=== PATIENT | female | born 1970 | race Two or more races ===

== ENCOUNTER 2019-11-07 21:50 | Emergency (ER) | payer MEDICAID ==
[~2019-11-07] VITALS: Ht 162.6 cm; Wt 63.5 kg
[2019-11-07 23:20] LABS: Urine Bacteria NONE SEEN /hpf (None Seen); Urine Blood Negative /uL (Negative); Urine Mucus FEW (None Seen); Urine Specific Gravity 1.016 (1.001-1.035); Urine WBC 5 /hpf (0 - 5)
[2019-11-07 23:43] LABS: Mean Corpuscular Volume 67.9 fL (80.0-100.0); Monocytes # (auto) 0.4 10 ^3/uL (0-1.3); Nucleated Red Blood Cells % 0.1 %
[2019-11-07 23:48] LABS: Hemoglobin 11.7 g/dL (12.2-16.2); Lymphocytes # (auto) 1.4 10 ^3/uL (0.4-5.4); Mean Corpuscular Hemoglobin 20.9 pg (28.0-32.0); Mean Corpuscular Hgb Conc. 30.8 g/dL (32.0-36.0)
[2019-11-07 23:51] LABS: Basophils # (auto) 0 10 ^3/uL (0-0.2); Basophils % (auto) 0.6 % (0.0-2.0); Eosinophils # (auto) 0 10 ^3/uL (0-0.8); Eosinophils % (auto) 0.7 % (0.0-7.0); Lymphocytes % (auto) 21.2 % (10.0-50.0); Monocytes % (auto) 6.5 % (0.0-12.0); Neutrophils # (auto) 4.7 10 ^3/uL (1.6-8.6); Platelet Count (auto) 367 10^3/uL (140-450); Red Blood Cells 5.59 10^6/uL (4.0-5.20); White Blood Cell 6.6 10^3/uL (4.4-10.8)
[2019-11-08 00:02] LABS: Albumin 3.5 g/dL (3.4-5.0); Anion Gap 6 (5-15); Calcium 8.7 mg/dL (8.5-10.1); Carbon Dioxide 28 mmol/L (21-32); Chloride 102 mmol/L (98-107); Glucose 103 mg/dL (74-106); Magnesium 2.3 mg/dL (1.6-2.6); Potassium 4.1 mmol/L (3.5-5.1); Sodium 136 mmol/L (136-145)
[2019-11-08 00:06] LABS: Red Cell Distribution Width 20.6 % (11.8-14.3)
[2019-11-08 00:10] LABS: Alanine Aminotransferase 22 U/L (13-56); Alkaline Phosphatase 64 U/L (45-117); Aspartate Aminotransferase 20 U/L (15-37); BUN/Creatinine Ratio 23.8; Bilirubin, Total 0.7 mg/dL (0.2-1.0); Blood Urea Nitrogen 15 mg/dL (7-18); GFR African American 129 mL/min; GFR Non-African American 107 mL/min; Total Protein 8.2 g/dL (6.4-8.2)
[2019-11-08 03:32] LABS: INR 0.93 (0.9-1.15); Partial Thromboplastin Time 26.7 sec (23.64-32.05)
[2019-11-08 03:43] VITALS: BP 124/77
== END 2019-11-08 04:19 | disposition home or self-care (01) ==
LOC: ER 21:50
DX: K21.9 Gastro-esophageal reflux disease without esophagitis (principal); N39.0 Urinary tract infection, site not specified; R07.89 Other chest pain
CPT/HCPCS: 36415; 71046; 80053; 81001; 81025; 83735; 83880; 84443; 84484; 85025; 85379; 85610; 85730; 93005

== ENCOUNTER 2020-03-23 01:10 | Inpatient (IN) | payer MEDICAID ==
[~2020-03-23] VITALS: Ht 162.6 cm; Wt 73.5 kg
[2020-03-23] MEDS ORDERED: ALBUTEROL SULF 2.5 MG/0.5ML(0.5%) NEB SOLN NEB ONE (04:15)
[2020-03-23] MEDS ORDERED: IPRATROPIUM BROM 0.5 MG/2.5ML INH SOL NEB ONE (04:15)
[2020-03-23 04:32] LABS: Neutrophils # (auto) 4.6 10 ^3/uL (1.6-8.6)
[2020-03-23 04:33] LABS: Basophils # (auto) 0 10 ^3/uL (0-0.2); Basophils % (auto) 0.6 % (0.0-2.0); Eosinophils # (auto) 0.2 10 ^3/uL (0-0.8); Eosinophils % (auto) 2.1 % (0.0-7.0); Hematocrit 34.5 % (36.0-46.0); Hemoglobin 10.7 g/dL (12.2-16.2); Lymphocytes # (auto) 1.9 10 ^3/uL (0.4-5.4); Lymphocytes % (auto) 25.2 % (10.0-50.0); Mean Corpuscular Hemoglobin 21.6 pg (28.0-32.0); Mean Corpuscular Hgb Conc. 31.1 g/dL (32.0-36.0); Mean Corpuscular Volume 69.5 fL (80.0-100.0); Monocytes # (auto) 0.7 10 ^3/uL (0-1.3); Monocytes % (auto) 9.4 % (0.0-12.0); Neutrophils % (auto) 62.7 % (37.0-80.0); Platelet Count (auto) 414 10^3/uL (140-450); Red Blood Cells 4.96 10^6/uL (4.0-5.20); White Blood Cell 7.4 10^3/uL (4.4-10.8)
[2020-03-23 04:34] LABS: Red Cell Distribution Width 21.3 % (11.8-14.3)
[2020-03-23 04:49] LABS: INR 0.92 (0.9-1.15); Partial Thromboplastin Time 25.4 sec (23.0-31.2)
[2020-03-23 04:53] LABS: Albumin 3.3 g/dL (3.4-5.0); Anion Gap 5 (5-15); Blood Urea Nitrogen 18 mg/dL (7-18); Calcium 8.6 mg/dL (8.5-10.1); Carbon Dioxide 28 mmol/L (21-32); Chloride 106 mmol/L (98-107); Glucose 100 mg/dL (74-106); Magnesium 2.3 mg/dL (1.6-2.6); Potassium 3.9 mmol/L (3.5-5.1); Sodium 139 mmol/L (136-145)
[2020-03-23 04:58] LABS: Alanine Aminotransferase 22 U/L (13-56); Alkaline Phosphatase 75 U/L (45-117); Aspartate Aminotransferase 21 U/L (15-37); Bilirubin, Total 0.7 mg/dL (0.2-1.0); GFR African American 142 mL/min; GFR Non-African American 117 mL/min; Total Protein 7.4 g/dL (6.4-8.2)
[2020-03-23] MEDS ORDERED: NITROGLYCERIN 0.4 MG SL TAB SL PRN (06:15)
[2020-03-23] MEDS ORDERED: ONDANSETRON HCL 4 MG/2 ML VIAL IV PRN (06:15)
[2020-03-23] MEDS ORDERED: MORPHINE SULF INJ 2 MG/ML SYRINGE 1ML IV PRN ×2 (06:15)
--- NOTE | 2020-03-23 09:04 | NUR ---
Telemetry admit from ER [facility] admitted to Telemetry unit after SBAR received. Patient oriented to Dinora Dumont, primary RN, unit, room, bed, and unit policies regarding patient care and visiting hours. Patient now on continuous telemetry monitoring, tele box # [id number] and telemetry reading on arrival to unit is sr HR 60's. Patient denies need for bedside oxygen, VSS. Pt weighed by bedscale and encouraged to call if they need something. All questions and concerns addressed, patient verbalized understanding. Patient denies cp at this time. No acute distress or sob noted. Cont care
[2020-03-23] MEDS ORDERED: ASPI-543 PO ×2 (09:18→11:21)
[2020-03-23] MEDS ORDERED: METOPROLOL TARTRATE 25 MG TAB PO SCH (10:00)
[2020-03-23] MEDS ORDERED: ASPirin-EC 81 mg tab PO SCH (10:00)
[2020-03-23] MEDS ORDERED: ENOXAPARIN SOD 40 MG/0.4 ML SYRINGE SC SCH (10:00)
[2020-03-23 13:00] VITALS: BP 86/64
--- NOTE | 2020-03-23 13:07 | NUR ---
MD at bedside Aware of patient's status, new orders received for UA and urine bacterial. Awaiting sample from patient at this time. Cont care
--- NOTE | 2020-03-23 14:20 | NUR ---
Spoke to Dr Lobato, he states patient is cleared for dc from cardio stand point. states pt does not require further cardio work up and to f/u in 1 week. Pt received his card to call and make own appointment. Patient verbalized understanding. Awaiting urine sample at this time. Patient denies any cp, no sob or distress noted.
[2020-03-23 14:27] VITALS: BP 104/68
--- NOTE | 2020-03-23 16:16 | NUR ---
Patient provided new urine cup for urine sample as, per patient, the other one got "dumped". Awaiting sample at this time.
[2020-03-23 16:58] VITALS: BP 96/59
--- NOTE | 2020-03-23 17:30 | NUR ---
Patient c/o headache and requesting meds, MD Silveira paged to obtain orders and notify of decreased BP. Voicemail left in answering machine awaiting call back. Cont care
[2020-03-23 18:18] VITALS: BP 103/71
[2020-03-23 18:45] LABS: Urine Bacteria FEW /hpf (None Seen); Urine Blood Negative /uL (Negative); Urine Specific Gravity 1.014 (1.001-1.035); Urine WBC 1 /hpf (0 - 5)
--- NOTE | 2020-03-23 18:46 | NUR ---
New orders received from Dr Silveira for Tylenol 1000mg po once now with morphine and zofran as requested per patient for headache 02/24. MD aware of patient's status including decreased bp. Awaiting urine results at this time. Per MD Silveira pt will be dc home tonight with abx if UA positive. Awaiting dc order for tonight for a late dc. Patient notified. Will medicate as ordered.
[2020-03-23] MEDS ORDERED: ACETAMINOPHEN 500 MG TAB PO ONE ×2 (18:54→19:00)
--- NOTE | 2020-03-23 19:07 | NUR ---
Patient care endorsed endorsed care to Natasha castellanos. Received call from Dr Silveira and states urine is negative and patient will be dc home tonight and he will put in orders. Patient notified and verbalized understanding. Per Dr Silveira disregard order from Dr Benitez as Dr Lobato is on the case and patient is cleared for dc from dr Lobato and notified to f/u in 1 week. Pt states she will make f/u appointment with Dr Lobato for 1 week, info provided to her by Dr Lobato to call and make own appointment. No acute distress or sob noted. Call light within reach.
--- NOTE | 2020-03-23 20:17 | NUR ---
This RN paging Dr. Oates now to determine if he has seen pt for clearance as discharg order entered by MD states pt to be discharged after cleared by Dr. Oates.
--- NOTE | 2020-03-23 20:20 | NUR ---
Dr. Lema answered telephone and stated pt may be discharged home that he had seen her and given her his card to follow up in one week. This RN informed hazardous waste remover, who removed PIV and telemetry.
--- NOTE | 2020-03-23 20:25 | NUR ---
This RN speaking with pt that she is to be discharged today; pt anselmo.
[2020-03-23 20:33] VITALS: BP 103/71
--- NOTE | 2020-03-23 21:07 | NUR ---
RN saw pt no longer in room; inquired of UC when pt went home. UC stated pt was discharged at 2101; education packet was given to pt. Addendum: 03/24/20 at 0557 by HERMES BEST RN CAROLE Beckford, JAYNA completed discharge in EMR.
[2020-03-23] MEDS ORDERED: ATORVASTATIN 20 MG TAB PO SCH (22:00)
== END 2020-03-23 21:02 | disposition home or self-care (01) | DRG 203 ==
LOC: ER 01:14 → TELE 01:15 → TELE-WESTW 08:59
PROVIDERS: ADMIT Hospitalist; ATTEND Hospitalist
DX: R07.89 Other chest pain (principal); D64.9 Anemia, unspecified; R51.9 Headache, unspecified
CPT/HCPCS: 36415; 71045; 80053; 81001; 83735; 83880; 84484; 85025; 85610; 85730; 87086; 93005; 93306; 94640; 96372; 96374; 96375; G0378; J2405

== ENCOUNTER 2022-10-06 13:38 | Emergency (ER) | payer MEDICAID ==
[~2022-10-06] VITALS: Ht 160 cm; Wt 82.0 kg
[~2022-10-06 13:38] MED LIST: ASPI-543 PO
[2022-10-06 13:46] VITALS: BP 103/70
[2022-10-06 14:00] LABS: Monocytes # (auto) 0.3 10 ^3/uL (0-1.3); Nucleated Red Blood Cells % 0.1 %
[2022-10-06 14:01] LABS: Basophils # (auto) 0.1 10 ^3/uL (0-0.2); Basophils % (auto) 0.5 % (0.0-2.0); Eosinophils # (auto) 0.1 10 ^3/uL (0-0.8); Eosinophils % (auto) 0.5 % (0.0-7.0); Hematocrit 40.8 % (36.0-46.0); Hemoglobin 12.9 g/dL (12.2-16.2); Lymphocytes # (auto) 0.6 10 ^3/uL (0.4-5.4); Lymphocytes % (auto) 5.3 % (10.0-50.0); Mean Corpuscular Hemoglobin 23.4 pg (28.0-32.0); Mean Corpuscular Hgb Conc. 31.6 g/dL (32.0-36.0); Mean Corpuscular Volume 74.1 fL (80.0-100.0); Monocytes % (auto) 2.8 % (0.0-12.0); Neutrophils # (auto) 10.2 10 ^3/uL (1.6-8.6); Neutrophils % (auto) 90.9 % (37.0-80.0); Red Cell Distribution Width 19.2 % (11.8-14.3); White Blood Cell 11.2 10^3/uL (4.4-10.8)
[2022-10-06 14:17] LABS: INR 0.97 (0.9-1.15)
[2022-10-06 15:47] LABS: Albumin 3.8 g/dL (3.4-5.0); Calcium 9.7 mg/dL (8.5-10.1); Magnesium 2.5 mg/dL (1.6-2.6); Potassium 4.1 mmol/L (3.5-5.1)
[2022-10-06 15:50] LABS: Bilirubin, Total 1.2 mg/dL (0.2-1.0); Total Protein 7.8 g/dL (6.4-8.2)
== END 2022-10-06 16:48 | disposition home or self-care (01) ==
LOC: ER 13:38
DX: J18.9 Pneumonia, unspecified organism (principal); Z79.899 Other long term (current) drug therapy
CPT/HCPCS: 36415; 71045; 80053; 83735; 84484; 85025; 85610; 85730; 93005

== ENCOUNTER 2024-03-22 23:22 | Emergency (ER) | payer MEDICAID ==
[~2024-03-22] VITALS: Ht 160 cm; Wt 77.5 kg
[2024-03-23] MEDS: KETOROLAC TROMETH 60MG/2ML VIAL IM ONE (01:43)
[2024-03-23 02:07] VITALS: BP 115/77; PULSE 71; RESP 18; TEMP 97.6; O2SAT 98
[2024-03-23 02:32] LABS: Eosinophils # (auto) 0.2 10 ^3/uL (0-0.8); Mean Corpuscular Volume 79.4 fL (80.0-100.0); Monocytes # (auto) 0.6 10 ^3/uL (0-1.3)
[2024-03-23 02:34] LABS: Basophils # (auto) 0.1 10 ^3/uL (0-0.2); Basophils % (auto) 0.8 % (0.0-2.0); Eosinophils % (auto) 3.2 % (0.0-7.0); Hematocrit 41.2 % (36.0-46.0); Hemoglobin 13.5 g/dL (12.2-16.2); Lymphocytes # (auto) 2.1 10 ^3/uL (0.4-5.4); Lymphocytes % (auto) 28.4 % (10.0-50.0); Mean Corpuscular Hgb Conc. 32.7 g/dL (32.0-36.0); Monocytes % (auto) 7.9 % (0.0-12.0); Neutrophils # (auto) 4.3 10 ^3/uL (1.6-8.6); Neutrophils % (auto) 59.7 % (37.0-80.0); Platelet Count (auto) 324 10^3/uL (140-450); Red Blood Cells 5.18 10^6/uL (4.0-5.20); White Blood Cell 7.3 10^3/uL (4.4-10.8)
[2024-03-23 02:46] LABS: Alanine Aminotransferase 35 U/L (7-40); Albumin 4.1 g/dL (3.2-4.8); Alkaline Phosphatase 87 U/L (46-116); Anion Gap 6 (5-15); Aspartate Aminotransferase 23 U/L (13-40); BUN/Creatinine Ratio 19.7 (10.0-20.0); Blood Urea Nitrogen 13 mg/dL (9-23); Calcium 9.4 mg/dL (8.7-10.4); Carbon Dioxide 26 mmol/L (20-31); Chloride 106 mmol/L (98-107); Glucose 97 mg/dL (74-106); Lipase 51 U/L (12-53); Potassium 4.1 mmol/L (3.5-5.1); Sodium 138 mmol/L (136-145)
[2024-03-23 02:47] LABS: Bilirubin, Total 0.5 mg/dL (0.2-1.0); Total Protein 6.9 g/dL (5.7-8.2)
[2024-03-23] MEDS ORDERED: IBUP-1456 PO (04:19)
[2024-03-23] MEDS ORDERED: METH-1181 PO (04:19)
== END 2024-03-23 04:27 | disposition home or self-care (01) ==
LOC: ER 23:22
DX: K80.20 Calculus of gallbladder without cholecystitis without obstruction (principal); Z79.899 Other long term (current) drug therapy
CPT/HCPCS: 36415; 71101; 74176; 80053; 83690; 85025; 96372; 99285; J1885